=== PATIENT | female | born 1950 | race Caucasian/White ===

== ENCOUNTER → 2017-01-02 | Outpatient (CLI) | payer MEDICARE ==
[~2017-01-02] MED LIST: AMLO5TAB2 PO; ASPI81TA81 PO; BIOT50006; CALC600T55 CHEW; LOSA100T PO; MULT1TAB46; NEXI40CA PO; TRIA37.53 PO; VITA-136
[2017-01-02 15:05] LABS: HEMATOCRIT 35.8 % (35.0-46.0); MEAN CELL VOLUME 90.6 FL (80.0-100.0); MEAN CORPUSCULAR HEMOGLOBIN 31.2 PG (27.0-34.0); MEAN CORPUSCULAR HGB CONC 34.4 % (32.0-36.0); PLATELET COUNT 294 TH/MM3 (150-450); RED BLOOD COUNT 3.95 MIL/MM3 (4.00-5.30); REVIEW FLAG FINAL; WHITE BLOOD COUNT 8.1 TH/MM3 (4.0-11.0)
[2017-01-02 16:50] LABS: BICARBONATE 24.5 MEQ/L (21.0-32.0)
== END ==
LOC: CLAB 14:43
PROVIDERS: ATTEND Internal Medicine Interventional Cardiology
DX: I48.0 Paroxysmal atrial fibrillation (principal)
CPT/HCPCS: 36415; 80048; 85027

== ENCOUNTER 2017-01-04 06:32 | Day surgery (SDC) | payer MEDICARE ==
[2017-01-04] MEDS ORDERED: SODIUM CHLOR 0.9% 1000 ML INJ 1,000 ML IV SCH (07:00)
[2017-01-04] MEDS ORDERED: ASPI81TA81 PO (07:12)
[2017-01-04] MEDS ORDERED: AMLO5TAB2 PO (07:12)
[2017-01-04] MEDS ORDERED: TRIA37.53 PO (07:12)
[2017-01-04] MEDS ORDERED: CALC600T55 CHEW (07:12)
[2017-01-04] MEDS ORDERED: NEXI40CA PO (07:12)
[2017-01-04] MEDS ORDERED: VITA-136 (07:12)
[2017-01-04] MEDS ORDERED: MULT1TAB46 (07:12)
[2017-01-04] MEDS ORDERED: LOSA100T PO (07:12)
[2017-01-04] MEDS ORDERED: BIOT50006 (07:12)
[2017-01-04] MEDS ORDERED: MUPIROCIN 2% OINT 1 APPLIC/GM SYR NASAL SCH (07:15)
[2017-01-04] MEDS ORDERED: CHLORHEXIDINE GLUCONATE 2 % 1 PACK (2 CLOTHS) TOP SCH (07:15)
[2017-01-04] MEDS ORDERED: ceFAZolin 2 GM PREMIX 50 ML IV SCH (07:15)
[2017-01-04] MEDS ORDERED: POVIDONE IODINE 5% (ANTISEPSIS KIT) 4 APPLICATIONS EACH NARE SCH (07:15)
[2017-01-04] MEDS ORDERED: MIDAZOLAM HCL 2 MG/2 ML VIAL ONE (08:04)
--- NOTE | 2017-01-04 15:50 | MP ---
cc: BRIANDA YADAV M.D., TERESA G. M.D. DATE OF SURGERY January 04, 2017 PROCEDURE PERFORMED Implantation of a loop recorder. PREOPERATIVE DIAGNOSIS Palpitations, tachycardia and suspected paroxysmal atrial fibrillation. POSTOPERATIVE DIAGNOSIS Palpitations, tachycardia and suspected paroxysmal atrial fibrillation. ANESTHESIA Intravenous Versed and fentanyl for awake sedation and 1% Xylocaine local. ESTIMATED BLOOD LOSS None. COMPLICATIONS None. PROCEDURE TECHNIQUE The patient was brought to the outpatient unit. Following informed consent the area of the left sternal area was prepped and draped in usual sterile manner. Following 10 ml of 1% Xylocaine for local anesthesia an incision was made and a [employer] LINQ loop recorder was implanted with the use of the supplied implantation device. The incision was then closed with Steri-Strips and a sterile pressure dressing. The device was interrogated and when good sensing seen the patient was prepared for discharge home. She tolerated the procedure well. There are no immediate complications. Device information [employer] LINQ model number LNQ11, serial number [id number]. Settings were bradycardia 30 beats per minute, tachycardia 162 beats per minute, a-fib detection on, the tech pause is greater than 3.0 seconds. Sensing showed 0.50 millivolt R-wave and P-waves were visible. MD SHAYNE Rosario/RYAN /8:41 AM /3:44 PM
== END 2017-01-04 09:35 | disposition home or self-care (01) ==
LOC: HCAT 06:32 → HDIC 06:32 → HCAT 09:35
PROVIDERS: ATTEND Internal Medicine Interventional Cardiology
DX: I48.2 Chronic atrial fibrillation (principal); R00.2 Palpitations; R00.0 Tachycardia, unspecified; I11.0 Hypertensive heart disease with heart failure; I34.1 Nonrheumatic mitral (valve) prolapse; E78.00 Pure hypercholesterolemia, unspecified
CPT/HCPCS: 33282; C1764; J0690; J2250; J3010; J7030

== ENCOUNTER → 2017-01-23 | Outpatient (CLI) | payer MEDICARE ==
[2017-01-23 08:50] LABS: AUTOMATED NEUTROPHIL # 2.6 TH/MM3 (1.8-7.7); BASOPHIL # 0.1 TH/MM3 (0-0.2); BASOPHIL % 0.9 % (0.0-2.0); EOSINOPHIL # 0.1 TH/MM3 (0-0.4); EOSINOPHIL % 2.3 % (0.0-4.0); HEMATOCRIT 35.6 % (35.0-46.0); HEMO FLAGS DIFF FINAL; LYMPHOCYTE # 2.5 TH/MM3 (1.0-4.8); MEAN CELL VOLUME 91.5 FL (80.0-100.0); MEAN CORPUSCULAR HEMOGLOBIN 31.4 PG (27.0-34.0); MEAN CORPUSCULAR HGB CONC 34.4 % (32.0-36.0); MONO % 8.4 % (0.0-8.0); NEUT % 45.4 % (16.0-70.0); PLATELET COUNT 248 TH/MM3 (150-450); RED BLOOD COUNT 3.89 MIL/MM3 (4.00-5.30); RED CELL DISTRIBUTION WIDTH 12.6 % (11.6-17.2); WHITE BLOOD COUNT 5.8 TH/MM3 (4.0-11.0)
[2017-01-23 09:19] LABS: ALT (GPT) 19 U/L (10-53)
[2017-01-23 09:20] LABS: ALKALINE PHOSPHATASE 58 U/L (45-117); HDL CHOLESTEROL 81.9 MG/DL (40.0-60.0); LDL CHOLESTEROL 121 MG/DL (0-99); TOTAL BILIRUBIN ADULT 0.5 MG/DL (0.2-1.0)
[2017-01-23 09:33] LABS: ANION GAP 9 MEQ/L (5-15); AST (GOT) 19 U/L (15-37); BICARBONATE 25.6 MEQ/L (21.0-32.0); BLOOD UREA NITROGEN 28 MG/DL (7-18); CHLORIDE 103 MEQ/L (98-107); GLOMERULAR FILTRATION RATE 45 ML/MIN (>89); GLUCOSE,FASTING 101 MG/DL (74-99); SODIUM (NA) 138 MEQ/L (136-145)
[2017-01-23 09:36] LABS: POTASSIUM 3.8 MEQ/L (3.5-5.1)
[2017-01-23 12:48] LABS: HEMOGLOBIN A1b 0.8 %; HEMOGLOBIN Ao 85.4 %; HEMOGLOBIN F 0.8 %; HEMOGLOBIN LA1C 2.1 %
== END ==
LOC: CLAB 08:17
PROVIDERS: ATTEND Family Medicine
DX: K21.9 Gastro-esophageal reflux disease without esophagitis (principal); R73.9 Hyperglycemia, unspecified
CPT/HCPCS: 36415; 80053; 80061; 83036; 85025